=== PATIENT | female | born 1955 | race Caucasian/White ===

== ENCOUNTER 2020-01-30 16:23 | Observation (INO) ==
[2020-01-30] MEDS: oxyCODONE/Acetamin 5/325 mg TAB PO ONE ×2 (16:59→17:13)
[2020-01-31 02:15] LABS: ABS Lymphocytes 0.9 10^3/ul (1.0-4.8); ABS Monocytes 0.4 10^3/ul (0-0.8); ABS Neutrophils 4.6 10^3/ul (1.5-7.7); Eosinophil % 0.7 %; Hematocrit 39 % (35-47); Hemoglobin 13.1 g/dL (12.0-16.0); Lymphocyte % 14.9 %; Mean Corpuscular HGB Conc 34 g/dL (31-36); Mean Corpuscular Hemoglobin 29 pg (27-31); Mean Corpuscular Volume 87 fL (80-97); Mean Platelet Volume 8.9 fL (7.4-10.4); Platelet Count 168 10^3/uL (150-450); Red Blood Count 4.47 10^6 /uL (3.70-4.87); Red Cell Distribution Width 14 % (10-15)
[2020-01-31 02:20] LABS: BUN/Creatinine Ratio 15.6 (8-20); EGFR African American 91.9 (>60); Potassium 3.8 mmol/L (3.5-5.0)
[2020-01-31] MEDS ORDERED: Morphine 2 MG/ML SYRINGE IV ONE (02:32)
[2020-01-31] MEDS: Lidocaine PATCH 5% PATCH TRANSDERM SCH ×2 (04:14→10:22)
[2020-01-31 18:02] VITALS: BP 106/68
[2020-01-31] MEDS ORDERED: Lidocaine Patch REMOVE PATCH PATCH OFF SCH (21:00)
== END 2020-01-31 18:00 | disposition home or self-care (01) ==
LOC: MED 16:23 → ED 16:23 → MED 01-31 02:52
PROVIDERS: ADMIT Nurse Practitioner Family; ATTEND Internal Medicine